=== PATIENT | male | born 1990 | race Caucasian/White ===

== ENCOUNTER 2016-09-26 04:12 | Emergency (ER) | payer OTHER ==
[2016-09-26 04:22] VITALS: BP 138/89
[2016-09-26] MEDS ORDERED: Penicillin VK TAB* 250 MG PO ONE (04:26)
[2016-09-26] MEDS ORDERED: Ibuprofen TAB* 600 MG PO ONE (04:26)
--- NOTE | 2016-09-26 04:49 | ED ---
I, Iván,Kulwinder, scribed for Olivier Braswell MD on 09/26/16 at 0430 . Throat Pain/Nasal Congestion - HPI Summary HPI Summary: This 25 y/o male presents to ED for chronic right sided dental pain since "months ago". He decided to visit ED today when pt had trouble controlling pain. Positive right facial swelling. Pt reports a broken tooth at right jaw. Female motel operator present at bedside states that pt has been attempting to get a hold of dentist at [facility] without success. Pt is strongly recommended to aggressively arrange the dental appointment for appropriate dental workup. PMHx includes asthma. Pt is a heavy everyday smoker. - History of Current Complaint Chief Complaint: EDDentalPain Time Seen by Provider: 09/26/16 04:21 Hx Obtained From: Patient, Family/Loan Counselor - female motel operator present at bedside Onset/Duration: Lasting Weeks, Still Present Cough: None - Allergies/Home Medications Allergies/Adverse Reactions: Allergies Allergy/AdvReac Type Severity Reaction Status Date / Time Bee Venom Allergy Swelling Verified 11/02/15 07:07 PMH/Surg Hx/FS Hx/Imm Hx Endocrine/Hematology History: Denies: Hx Diabetes, Hx Thyroid Disease Cardiovascular History: Denies: Hx Congestive Heart Failure, Hx Deep Vein Thrombosis, Hx Hypertension , Hx Myocardial Infarction, Hx Pacemaker/ICD Respiratory History: Reports: Hx Asthma - He will use his inhaler "a couple times a year." Denies: Hx Chronic Obstructive Pulmonary Disease (COPD), Hx Lung Cancer, Hx Pneumonia, Hx Pulmonary Embolism GI History: Denies: Hx Gall Bladder Disease, Hx Gastrointestinal Bleed, Hx Ulcer, Hx Urosepsis History: Denies: Hx Kidney Stones, Hx Renal Disease Neurological History: Denies: Hx Dementia, Hx Migraine, Hx Seizures, Hx Transient Ischemic Attacks (TIA) Psychiatric History: Denies: Hx Anxiety, Hx Depression, Hx Schizophrenia, Hx Bipolar Disorder - Surgical History Surgery Procedure, Year, and Place: cholecystectomy 12/2010. tonsillectomy Infectious Disease History: No Infectious Disease History: Denies: Hx Hepatitis, Hx Human Immunodeficiency Virus (HIV), History Other Infectious Disease, Traveled Outside the [place] in Last 30 Days - Family History Known Family History: Positive: Cardiac Disease, Hypertension - Social History Alcohol Use: Rare Hx Substance Use: No Substance Use Type: Reports: None Hx Tobacco Use: Yes Smoking Status (MU): Heavy Every Day Tobacco Smoker Amount Used/How Often: 3/4 PPD Review of Systems Negative: Fever Positive: Dental Pain All Other Systems Reviewed And Are Negative: Yes Physical Exam Triage Information Reviewed: Yes Vital Signs On Initial Exam: Initial Vitals Temp Pulse Resp BP Pulse Ox 98.0 F 69 16 138/89 96 09/26/16 04:15 09/26/16 04:15 09/26/16 04:15 09/26/16 04:15 09/26/16 04:15 Vital Signs Reviewed: Yes Appearance: Positive: Well-Appearing, No Pain Distress Skin: Positive: Warm Head/Face: Positive: Normal Head/Face Inspection Eyes: Positive: JACEY ENT: Positive: Hearing grossly normal Dental: Positive: Gross Decay/Caries @, Dental Fracture @, Other - mild rt lower jaw region facial swelling Neck: Positive: Nontender Respiratory/Lung Sounds: Positive: Breath Sounds Present Neurological: Positive: Alert, Oriented to Person Place, Time Diagnostics - Vital Signs Vital Signs Temp Pulse Resp BP Pulse Ox 09/26/16 04:15 98.0 F 69 16 138/89 96 - Laboratory Lab Statement: Any lab studies that have been ordered have been reviewed, and results considered in the medical decision making process. EENT Course/Dx - Course Assessment/Plan: This 25 y/o male presents to ED for chronic right sided dental pain and right sided facial swelling. Upon examination pt is noted with gross dental inflammation. Pt is given IBP and PCN during ED course. He is strongly encouraged to arrange a dental appointment in near future for appropriate workup , and pt expresses understanding. - Diagnoses Provider Diagnoses: Chronic dental pain Discharge - Discharge Plan Condition: Stable Disposition: HOME Prescriptions: Ibuprofen TAB* [Motrin TAB* 600 MG] 600 mg PO Q6H #30 tab Penicillin VK TAB* [Penicillin VK 250 mg Tab*] 250 mg PO QID #30 tab Patient Education Materials: Toothache (ED) Referrals: [facility] [Outside] Jeanie Armando [Other] The documentation as recorded by the Iván cameron Soohyun accurately reflects the service I personally performed and the decisions made by , Olivier Braswell MD.
== END 2016-09-26 04:41 | disposition home or self-care (01) ==
LOC: ED 04:12
DX: K08.89 Other specified disorders of teeth and supporting structures (principal); F17.210 Nicotine dependence, cigarettes, uncomplicated
CPT/HCPCS: 99282; A9270-GY